=== PATIENT | female | born 1975 | race Caucasian/White ===

== ENCOUNTER 2017-05-06 08:58 | Emergency (ER) | payer OTHER ==
[~2017-05-06] VITALS: Ht 152.4 cm; Wt 93.2 kg
[2017-05-06 09:41] LABS: BASO # 0.1 10^3/uL (0.0-0.2); BASO % 0.4 % (0.0-1.0); EOS # 0.1 10^3/uL (0.0-0.50); EOS % 0.4 % (0.0-3.0); IMMATURE GRANULOCYTE % 0.4 % (0-0); LYMPH # 1.2 10^3/uL (1.5-4.5); MEAN CORPUSCULAR HEMOGLOBIN 27.7 pg (27.0-33.0); MEAN CORPUSCULAR HGB CONC 33.8 g/dl (32.0-36.5); MEAN CORPUSCULAR VOLUME 82.1 fl (80.0-96.0); MONO # 0.8 10^3/uL (0.0-0.8); MONO % 4.7 % (0.0-5.0); NEUTROPHILS # 14.5 10^3/uL (1.8-7.7); NEUTROPHILS % 87.1 % (36.0-66.0); PLATELET COUNT, AUTOMATED 280 10^3/uL (150-450); RED CELL DISTRIBUTION WIDTH 12.8 % (11.5-14.5); WHITE BLOOD COUNT 16.6 10^3/uL (4.0-10.0)
[2017-05-06 10:04] LABS: ALBUMIN 3.3 GM/DL (3.2-5.2); ALBUMIN/GLOBULIN RATIO 0.77 (1.00-1.93); ALKALINE PHOSPHATASE 59 U/L (45-117); ALT/SGPT 21 U/L (12-78); ANION GAP 7 MEQ/L (8-16); AST/SGOT 9 U/L (7-37); BILIRUBIN,DIRECT 0.1 MG/DL (0.0-0.2); BILIRUBIN,TOTAL 0.8 MG/DL (0.2-1.0); BLOOD UREA NITROGEN 6 MG/DL (7-18); CALCIUM LEVEL 8.6 MG/DL (8.5-10.1); CARBON DIOXIDE LEVEL 26 MEQ/L (21-32); CHLORIDE LEVEL 104 MEQ/L (98-107); CREATININE FOR GFR 0.65 MG/DL (0.55-1.02); GLOMERULAR FILTRATION RATE > 60.0 (>58); GLUCOSE, FASTING 111 MG/DL (70-105); POTASSIUM SERUM 3.5 MEQ/L (3.5-5.1); SODIUM LEVEL 137 MEQ/L (136-145); TOTAL PROTEIN 7.6 GM/DL (6.4-8.2)
[2017-05-06 10:33] LABS: CONTROL LINE HCG INT CTR LINE PRESENT
[2017-05-06] MEDS ORDERED: ISOVUE-370 76% 100ML VIAL (Q9967) As Ordered ONE (10:54)
--- NOTE | 2017-05-06 13:09 | REP ---
CT ABDOMEN AND PELVIS WITH IV CONTRAST: TECHNIQUE: Axial contrast enhanced images from the lung bases to the pubic symphysis using 100 mL Isovue 370 intravenous contrast material with multiplanar reformations. Visualized lung bases are clear. The liver appears unremarkable. Patient has had a prior cholecystectomy. There is no biliary dilatation. Spleen, adrenals, pancreas, and kidneys appear unremarkable. There is no hydronephrosis bilaterally. There is no abdominal aortic aneurysm. There is no adenopathy, free air, or free fluid. There is extensive sigmoid diverticulosis with thickening of the sigmoid and surrounding streaky inflammatory change in the mesenteric fat consistent with sigmoid diverticulitis. No pelvic mass is seen. The urinary bladder is unremarkable. IMPRESSION: Sigmoid diverticulitis. No free air or free fluid. No evidence of abscess. Signed by Indio Lamas MD 05/06/2017 05:36 P
[2017-05-06] MEDS ORDERED: metroNIDAZOLE (FLAGYL) 500 MG TAB PO ONE (13:15)
[2017-05-06] MEDS ORDERED: CIPROFLOXACIN 500 MG TAB PO ONE (13:15)
[2017-05-06] MEDS ORDERED: ACETAMINOPHEN 325 MG TAB PO ONE (13:15)
[2017-05-06] MEDS ORDERED: NS 1,000 ML IV ONE (13:30)
--- NOTE | 2017-05-06 13:30 | REP ---
CHEST, TWO VIEWS: There is no evidence of acute infiltrate. No pleural effusion is seen. The heart is normal in size. The mediastinal silhouette is unremarkable. The visualized osseous structures are intact. IMPRESSION: No acute pulmonary disease. Signed by Indio Lamas MD 05/06/2017 05:37 P
[2017-05-06 14:36] VITALS: BP 130/79
[2017-05-06] MEDS ORDERED: FLAG500T PO (14:45)
[2017-05-06] MEDS ORDERED: CIPR-249 PO ×2 (14:46→14:47)
--- NOTE | 2017-05-06 21:43 | ECGEPIP ---
Stationary ECG Study [facility] - ED Test Date: 2017-05-06 Pat Name: UNRULY SANDOVAL Department: Room: - Gender: F Associate Director Qa: GOMEZ : 1975 Requested By: LAUREN Young Order Number: [id number] Reading MD: Hayley Coronado Measurements Intervals [place] Rate: 139 P: 42 NH: 135 QRS: 5 QRSD: 76 T: 36 QT: 278 QTc: 424 Interpretive Statements SINUS TACHYCARDIA LOW QRS VOLTAGE IN PRECORDIAL LEADS ABNORMAL RHYTHM ECG NSTTW ABNORMALITY INCREASED RATE 03/24/15 Electronically Signed On 05-06-2017 21:43:20 EST by Hayley Coronado
== END 2017-05-06 15:10 | disposition home or self-care (01) ==
LOC: M ED 08:58 → EDBD 08:58 → M ED 15:10
DX: K57.92 Diverticulitis of intestine, part unspecified, without perforation or abscess without bleeding (principal)
CPT/HCPCS: 36415; 71020; 74177; 80048; 80076; 81001; 83605; 83690; 84703; 85025; 87210; 87491; 87591; 93000; 93041; 96360; 96361; 99285; Q9967

== ENCOUNTER 2019-03-15 16:40 | Emergency (ER) | payer OTHER ==
[~2019-03-15] VITALS: Ht 152.4 cm; Wt 93.1 kg
[~2019-03-15 16:40] MED LIST: CIPR-249 PO; FLAG500T PO
[2019-03-15] MEDS ORDERED: MECL12.575 PO (16:56)
[2019-03-15] MEDS ORDERED: VASC1CAP2 PO (17:01)
[2019-03-15 17:57] LABS: HEMOGLOBIN 13.9 g/dl (12.0-15.5); MEAN CORPUSCULAR HGB CONC 33.9 g/dl (32.0-36.5); MEAN CORPUSCULAR VOLUME 82.5 fl (80.0-96.0); PLATELET COUNT, AUTOMATED 298 10^3/uL (150-450); RED BLOOD COUNT 4.97 10^6/uL (4.00-5.40); WHITE BLOOD COUNT 12.5 10^3/uL (4.0-10.0)
[2019-03-15 18:23] LABS: AMPHETAMINES LEVEL URINE NEGATIVE (NEGATIVE); BARBITURATES URINE NEGATIVE (NEGATIVE); BENZODIAZEPINES URINE NEGATIVE (NEGATIVE); CANNABINOIDS URINE NEGATIVE (NEGATIVE); COCAINE METABOLITE URINE NEGATIVE (NEGATIVE); METHADONE URINE NEGATIVE (NEGATIVE); OPIATES URINE NEGATIVE (NEGATIVE); PHENCYCLIDINE URINE NEGATIVE (NEGATIVE)
[2019-03-15 18:38] LABS: ACETAMINOPHEN LEVEL < 2.0 UG/ML (10.0-30.0); ALBUMIN 3.7 GM/DL (3.2-5.2); ALT/SGPT 23 U/L (12-78); BILIRUBIN,DIRECT 0.1 MG/DL (0.0-0.2); BILIRUBIN,TOTAL 0.4 MG/DL (0.2-1.0); BLOOD UREA NITROGEN 9 MG/DL (7-18); CALCIUM LEVEL 8.9 MG/DL (8.5-10.1); CARBON DIOXIDE LEVEL 28 MEQ/L (21-32); CHLORIDE LEVEL 106 MEQ/L (98-107); CREATININE FOR GFR 0.89 MG/DL (0.55-1.30); ETHYL ALCOHOL (ETHANOL) < 0.003 % (0.000-0.010); GLOMERULAR FILTRATION RATE > 60.0 (>58); GLUCOSE, FASTING 95 MG/DL (70-100); SALICYLATE LEVEL < 1.7 MG/DL (5.0-30.0); SODIUM LEVEL 140 MEQ/L (136-145); TOTAL PROTEIN 7.9 GM/DL (6.4-8.2)
[2019-03-15 19:02] VITALS: BP 132/81
--- NOTE | 2019-03-15 19:35 | ECGEPIP ---
[facility] - ED Test Date: 2019-03-15 Pat Name: UNRULY SANDOVAL Department: Room: - Gender: Female Residential Glazier: ELI : 1975 Requested By: Nadia Abad Order Number: [id number] Reading MD: Nadia Abad Measurements Intervals [place] Rate: 91 P: 47 TX: 144 QRS: 4 QRSD: 79 T: 37 QT: 349 QTc: 430 Interpretive Statements SINUS RHYTHM WITH SINUS ARRHYTHMIA BASELINE WANDERING MAY AFFECT READING DELAYED R WAVE PROGRESSION 05/06/[address] T WAVE CHANGES Electronically Signed on 03-15-2019 19:35:39 EDT by Nadia Abad
== END 2019-03-15 19:03 | disposition home or self-care (01) ==
LOC: M ED 16:40
DX: F41.0 Panic disorder [episodic paroxysmal anxiety] (principal); Z79.899 Other long term (current) drug therapy; Z88.0 Allergy status to penicillin; Z88.1 Allergy status to other antibiotic agents
CPT/HCPCS: 36415; 80048; 80076; 80307; 84443; 85027; 93005; 99284; G0480